=== PATIENT | male | born 1960 | race Hispanic/Latino ===

== ENCOUNTER 2020-12-12 15:42 | Emergency (ER) | payer OTHER ==
[~2020-12-12] VITALS: Ht 177.8 cm; Wt 104.8 kg
[2020-12-12] MEDS ORDERED: LIDOCAINE 1% 5ML-MPF INJ ONE (16:00)
[2020-12-12] MEDS ORDERED: CLONIDINE HCL0.1 MG PO (16:25)
[2020-12-12] MEDS ORDERED: METOPROLOL SUCC50 MG PO (16:25)
[2020-12-12] MEDS ORDERED: METFORMIN HCL1000 MG (16:25)
[2020-12-12] MEDS ORDERED: AMLODIPINE BESY10 MG PO (16:25)
[2020-12-12] MEDS ORDERED: GLYBURIDE5 MG PO (16:25)
[2020-12-12] MEDS ORDERED: BACITRACIN ZINC 0.9GM TP ONE (16:41)
[2020-12-12] MEDS ORDERED: MOTRIN200 MG PO (16:41)
[2020-12-12] MEDS ORDERED: CEPHALEXIN500 MG PO (16:41)
== END 2020-12-12 16:46 | disposition home or self-care (01) ==
LOC: FSED 16:00
DX: S61.211A Laceration without foreign body of left index finger without damage to nail, initial encounter (principal); W23.0XXA Caught, crushed, jammed, or pinched between moving objects, initial encounter; Z79.899 Other long term (current) drug therapy
CPT/HCPCS: 99283